=== PATIENT | female | born 1960 | race American Indian/Alaskan Native ===

== ENCOUNTER 2020-06-01 08:39 | Day surgery (SDC) | payer BC ==
[2020-06-01] MEDS ORDERED: HEPARIN/NS 5000 UNIT/500ML 1,000 ML IR ONE (10:00)
[2020-06-01] MEDS ORDERED: SODIUM CHLORIDE 0.9% 500 ML 500 ML IV SCH (10:00)
[2020-06-01 10:02] LABS: Basophils # (Auto) 0.1 K/mm3 (0.0-0.1); Basophils % (Auto) 0.7 % (0.0-1.8); Eosinophils # (Auto) 0.1 K/mm3 (0.0-0.4); Eosinophils % (Auto) 1.8 % (0.0-4.3); Hematocrit 45.9 % (30.3-42.9); Hemoglobin 15.6 gm/dl (10.1-14.3); Lymphocytes # (Auto) 2.3 K/mm3 (1.2-5.4); Lymphocytes % (Auto) 27.9 % (13.4-35.0); Mean Corpuscular HGB Conc 34 % (30-34); Mean Corpuscular Volume 94 fl (79-97); Monocytes # (Auto) 0.9 K/mm3 (0.0-0.8); Monocytes % (Auto) 10.6 % (0.0-7.3); Platelet Count 177 K/mm3 (140-440); Red Blood Count 4.86 M/mm3 (3.65-5.03); Red Cell Distribution Width 13.6 % (13.2-15.2)
[2020-06-01 10:15] LABS: INR 1.01 (0.87-1.13)
[2020-06-01 10:16] LABS: Partial Thromboplastin Time 26.1 Sec. (24.2-36.6)
[2020-06-01] MEDS: MIDAZOLAM 2 MG/2 ML INJ ONE ×2 (10:32→10:40)
[2020-06-01] MEDS: fentaNYL 100 MCG/2 ML INJ ONE ×2 (10:32→10:40)
[2020-06-01] MEDS: HEPARIN 10,000 UNITS/10 ML VIAL ONE ×2 (10:33→10:42)
[2020-06-01] MEDS: LIDOCAINE (2%) 20 MG/1 ML VIAL 20 ML MDV INFILTRATI ONE ×2 (10:33→10:40)
[2020-06-01] MEDS: VERAPAMIL 5 MG/2 ML INJ ONE ×2 (10:33→10:42)
[2020-06-01] MEDS: NITROGLYCERIN SYRINGE 3 ML ONE ×2 (10:34→10:42)
[2020-06-01 10:38] LABS: Blood Urea Nitrogen 7 mg/dL (7-17); Calcium 9.9 mg/dL (8.4-10.2); Hemolysis Index 16
[2020-06-01 10:39] LABS: BUN/Creatinine Ratio 12
--- NOTE | 2020-06-01 11:46 | Cardiac Catherization Report ---
REFERRING PHYSICIAN: Dr. Dolly Atkinson. INDICATION FOR PROCEDURE: The patient is a very pleasant 59-year-old female with a history of multivessel coronary artery disease, PCI, prediabetes, hypertension, hyperlipidemia, having chest pain from time to time with exertion, abnormal stress test, symptoms are likely consistent with unstable angina. Risks, benefits, alternatives discussed prior to obtaining informed consent. PROCEDURE IN DETAIL: The patient was brought to specialist [facility] relations in a postabsorptive state, prepped and draped in sterile fashion. Larry's test in right hand was normal. A 2 mL of 2% lidocaine used to anesthetize the right wrist. A standard 6-Thai hydrophilic sheath used to cannulate the right radial artery via modified Seldinger technique. A JL4 catheter used to engage the left main. No dampening or ventricularization. Cineangiography performed in all projections. JR4 catheter used to cross the aortic valve under fluoroscopic guidance. Left ventriculography was performed in 30 KIM and 30 AZERI projections via hand injections, catheter flushed. Manual pullback performed with continuous pressure monitoring. Catheter used to engage the right coronary. No dampening or ventricularization. Cineangiography performed in all projections. Next, catheter removed from the body of wire, sheath removed. Manual pressure used to achieve hemostasis. I directly supervised the administration of moderate sedation with fentanyl and Versed from 10:40 a.m. to 11:05 a.m. No immediate complications identified. DATA: Aortic pressure is 150/70, LV pressure is 150, LVP of 30 mmHg. Left ventriculography reveals normal systolic performance with estimated ejection fraction of 55-60%. No evidence of aortic stenosis. Normal LVEDP. CORONARY ANATOMY: This is a right dominant system. Left main is short without significant disease, bifurcates left anterior descending and left circumflex. LAD is a moderate sized vessel, courses the anterior interventricular groove. She is found to have a long stent in the mid LAD, severe in-stent restenosis at least 80-90%, LOR 3 flow in the LAD. It should be noted there are extensive left to right collaterals. There is also ostial 90% stenosis of a very small second diagonal. The left circumflex with a 95% stenosis in the mid segment, OM trunk with a long 90% stenosis, a branch off of the OM with a 90% ostial stenosis, LOR 3 flow throughout. Right coronary with a chronic total occlusion in the mid segment. Again, extensive left to right collaterals are identified. CONCLUSIONS: 1. Severe and diffuse multivessel coronary artery disease in this right dominant system. 2. Preserved left ventricular systolic performance with estimated ejection fraction of 55-60%. 3. No evidence of aortic stenosis. 4. Normal LVEDP. The patient is clinically stable, chest pain free at this time. Given the diffuse nature of disease, I believe she would most benefit from complete revascularization. She is clinically hemodynamically stable. She will be transferred to [facility] for consideration of the same. Results of procedure explained to the patient and family at length. All questions and concerns were addressed. Standard radial care. ____ once bed available. JOB# [id number] DENISA/SALOMON
[2020-06-01 14:34] VITALS: BP 108/42
--- NOTE | 2020-06-04 11:25 | Short Stay Summary ---
Short Stay Documentation Date of service: 06/01/20 - History H&P: obtained from office - Allergies and Medications Current Medications: Allergies erythromycin base Allergy (Unverified 06/01/20 08:44) Vomiting Sulfa (Sulfonamide Antibiotics) Allergy (Unverified 06/01/20 08:44) CAUSES PT TO BECOME PARANOID tetracycline Allergy (Unverified 06/01/20 08:44) CAUSES PT TO BECOME PARANOID Home Medications Medication Instructions Recorded Confirmed Last Taken Type Aspirin 325 mg PO QDAY 06/01/20 06/01/20 06/01/20 History 1 tab Nitroglycerin [place] [Nitromist] 1 spray TL Q5MIN PRN 06/01/20 06/01/20 06/01/20 History Pravastatin [Pravachol] 40 mg PO QHS 06/01/20 06/01/20 05/31/20 History 1 tab atenoloL [Tenormin] 50 mg PO DAILY 06/01/20 06/01/20 05/31/20 History 1 tab - Brief post op/procedure progress note Date of procedure: 06/01/20 Pre-op diagnosis: CAD Post-op diagnosis: same Procedure: [facility] - see dictated cath report Anesthesia: local Estimated blood loss: none Condition: stable - Hospital course Hospital course: tx to [facility] for revascularization - Disposition Condition at discharge: Good Disposition: [id number] ANOTHER [facility] - Discharge Diagnoses (1) CAD (coronary artery disease) Status: Chronic Short Stay Discharge Plan Diet: low fat, low cholesterol, low salt Wound: open to air, keep clean and dry, per your surgeon's advice Follow up with: BRADY HAIDER MD [Primary Care Provider] - 7 Days
== END 2020-06-01 15:07 | disposition other institution (70) ==
LOC: CATHLABREC 08:39 → EDSEX 12:30 → CATHLABREC 15:07
PROVIDERS: ATTEND Internal Medicine
DX: I25.10 Atherosclerotic heart disease of native coronary artery without angina pectoris (principal); E78.2 Mixed hyperlipidemia; I34.0 Nonrheumatic mitral (valve) insufficiency; F17.210 Nicotine dependence, cigarettes, uncomplicated; I10 Essential (primary) hypertension; Z88.2 Allergy status to sulfonamides; Z88.8 Allergy status to other drugs, medicaments and biological substances; Z79.899 Other long term (current) drug therapy; Z79.82 Long term (current) use of aspirin; Z95.2 Presence of prosthetic heart valve; Z85.3 Personal history of malignant neoplasm of breast; Z90.11 Acquired absence of right breast and nipple; Z98.890 Other specified postprocedural states; Z98.61 Coronary angioplasty status; Z72.89 Other problems related to lifestyle
CPT/HCPCS: 36415; 80048; 85025; 85610; 85730; 93005; 93458; 99156; 99157; C1894; J1644; J2250; J3010; J7040; Q9967